=== PATIENT | male | born 1995 | race African-American/Black ===

== ENCOUNTER 2020-05-09 07:38 | Emergency (ER) | payer SELFPAY ==
[2020-05-09] MEDS ORDERED: Lidocaine 1% (PF) 30 ML VIAL ONE (08:13)
== END 2020-05-09 08:40 | disposition home or self-care (01) ==
LOC: NAV ERS 07:38
DX: L02.214 Cutaneous abscess of groin (principal); J45.909 Unspecified asthma, uncomplicated; F17.210 Nicotine dependence, cigarettes, uncomplicated
CPT/HCPCS: 10060; 87070; 87205; J2001